=== PATIENT | female | born 1990 | race Two or more races ===

== ENCOUNTER 2024-11-08 09:17 | Emergency (ER) | payer MEDICAID, SELFPAY ==
[2024-11-08 09:18] VITALS: BMI 46.0
[2024-11-08 09:41] VITALS: BP 152/84; PULSE 82; RESP 20; TEMP 37.1; O2SAT 98; BMI 47.5
--- NOTE | 2024-11-08 09:43 | XR_ITS ---
Examination: Tibia-Fibula, right , 2 views Technique: Tibia-fibula AP lateral 2 views Date and time of exam: November 08, 2024 0948 hours INDICATIONS: Right leg pain beginning one week ago. FINDINGS: No fracture or dislocation. No cortical bone obstruction IMPRESSION: No fracture or dislocation
--- NOTE | 2024-11-08 09:43 | XR_ITS ---
Examination: Knee, right , 3 views Technique: Knee AP, lateral, oblique 3 views Date and time of exam: November 08, 2024 0948 hours INDICATIONS: Right knee swelling and pain beginning one month ago. FINDINGS: Bipartite patella Moderate tricompartment osteoarthritis Small knee effusion No fracture IMPRESSION: Moderate tricompartment osteoarthritis No fracture
--- NOTE | 2024-11-08 09:43 | XR_ITS ---
Examination: Duplex scan of the lower extremity, unilateral right Date and time of exam: November 08, 2024 1022 hours INDICATIONS: Right leg swelling and pain beginning one week ago Technique: Duplex scan of the extremity veins using B-mode/grayscale imaging and Doppler spectral analysis and color flow Attention is directed to internal echogenicity, compression and augmentation involving these veins, color flow assessment, spectral analysis Findings: Positive for nonocclusive thrombus right popliteal right peroneal veins Common femoral superficial femoral posterior tibial veins are open IMPRESSION: Positive for acute nonocclusive thrombus in the right peroneal and popliteal veins
[2024-11-08 11:55] LABS: Basophils % (Auto) 0 % (0-2.5); Eosinophils # (Auto) 0.1 Thou/mm3 (0.0-0.5); Eosinophils % (Auto) 1 % (0-10); Hematocrit 41.5 % (36.0-46.0); Hemoglobin 13.5 g/dL (12.0-16.0); Immature Granulocytes % (Auto) 0 % (0-0); Immature Granulocytes Auto 0.01 Thou/mm3 (0.00-0.00); Lymphocytes % (Auto) 25 % (10-50); Mean Corpuscular HGB Conc 32.5 g/dl (31.0-37.0); Mean Corpuscular Volume 77 fL (80-100); Monocytes # (Auto) 0.4 Thou/mm3 (0.0-0.8); Monocytes % (Auto) 6 % (0-12); Neutrophils # (Auto) 5.4 Thou/mm3 (1.8-7.7); Neutrophils % (Auto) 68 % (37-80); Nucleated Red Blood Cell % 0 /100 WBC (0); Platelet Count 186 Thou/mm3 (140-440); RDW Standard Deviation 44.8 fL (36.4-46.3)
[2024-11-08 12:03] LABS: Glucose Estimated Average 154 mg/dL (80-131)
[2024-11-08 12:09] LABS: Partial Thromboplastin Time 30.2 Seconds (22.0-36.0); Prothrombin Time 11.2 Seconds (9.0-12.2)
[2024-11-08 12:17] LABS: Alanine Aminotransferase 64 U/L (10-49); Albumin, Serum 4.4 gm/dL (3.5-5.0); Albumin/Globulin Ratio 1.5 (1.2-2.2); Alkaline Phosphatase 63 U/L (46-116); Anion Gap 9 (7-16); Aspartate Amino Transferase 39 U/L (0-34); BUN/Creatinine Ratio 13 Ratio (12-20); Bilirubin,Total 0.6 mg/dL (0.3-1.2); Blood Urea Nitrogen 12 mg/dL (9-23); Calcium 9.5 mg/dL (8.3-10.6); Calcium (Corrected) 9.5 mg/dL (8.5-10.1); Carbon Dioxide 26.5 mMol/L (20.0-31.0); Chloride 103 mMol/L (98-107); Creatinine (Component) 0.9 mg/dL (0.6-1.3); Estimated Creatinine Clearance 109.3 mL/min (>60); Glucose 178 mg/dL (74-106); Osmolality,Calculated 279 (275-295); Potassium 3.9 mMol/L (3.4-5.1); Sodium 138 mMol/L (136-145); Total Protein 7.4 gm/dL (5.7-8.2); eGFR > 60 See Note
--- NOTE | 2024-11-08 12:19 | EDNOTE_ITS ---
Lower Extremity Injury RME/HPI General Chief Complaint: Extremity Injury, Lower Stated Complaint: RIGHT LOWER PAIN, XH BLOOD CLOTS Time Seen by Provider: 11/08/24 09:43 Arrival date/time: 11/08/24 09:17 34-year-old female with prior history of DVT back in 2013 presents to the emergency department today for complaint of right knee pain and right patel pain with mild swelling there are no other associated symptoms or aggravating factors no other modifying factors, patient denies taking medication before coming to ER today Limitations: no limitations Related Data Home Medications ?Medication ?Instructions ?Recorded ?Confirmed metformin 1,000 mg tablet 1,000 mg PO BID 07/26/19 Previous Rx's ?Medication ?Instructions ?Recorded blood sugar diagnostic (Accu-Chek #100 ea 04/01/20 Alexandra Plus test strips) cefuroxime axetil 500 mg tablet 500 mg PO BID #10 tabs 04/01/20 hydrocodone 7.5 mg-acetaminophen 1 tab PO Q8H PRN pain (scale score 04/01/20 325 mg tablet ([place]) 7-10) #10 tabs insulin glargine 100 unit/mL 22 unit (0.22 mL) subcut HS #100 04/01/20 subcutaneous solution (Lantus units U-100 Insulin) insulin lispro 100 unit/mL 2 unit (0.02 mL) subcut .TI DAC 04/01/20 subcutaneous solution (Humalog #100 multiple units U-100 Insulin) insulin syringe-needle U-100 1 mL #100 ea 04/01/20 29 gauge x 1/2 (Advocate Syringes) acetaminophen 500 mg tablet 1,000 mg (2 x 500 mg) PO Q 6H PRN 11/30/23 (Tylenol Extra Strength) pain #60 tabs ondansetron 4 mg disintegrating 4 mg PO Q6H PRN nausea and 11/30/23 tablet vomiting #15 tabs cephalexin 500 mg capsule 500 mg PO BID #6 caps apixaban 5 mg tablet (Eliquis) 10 mg (2 x 5 mg) PO BID 7 days #28 11/08/24 tabs Allergies Allergy/AdvReac Type Severity Reaction Status Date / Time No Known Allergies Allergy Verified 11/08/24 09:20 Review of Systems Review of Systems Systems Reviewed: All systems reviewed, normal except as documented Constitutional Constitutional: Reports system reviewed and no additional complaints, except as documented, Denies fever(s) and Denies headache(s) Eyes Eyes: Reports system reviewed and no additional complaints, except as documented and Denies blurry vision ENT Ears, Nose, Mouth, and Throat: Reports system reviewed and no additional complaints, except as documented, Denies headache(s), Denies nasal congestion and Denies nasal discharge Cardiovascular Cardiovascular: Reports system reviewed and no additional complaints, except as documented, Denies chest pain and Denies dyspnea Respiratory Respiratory: Reports system reviewed and no additional complaints, except as documented, Denies chest congestion, Denies cough and Denies dyspnea Gastrointestinal Gastrointestinal: Reports system reviewed and no additional complaints, except as documented and Denies abdominal pain Musculoskeletal Musculoskeletal: Reports system reviewed and no additional complaints, except as documented, Denies deformity and Reports other (Pain right leg) Integumentary/Breasts Skin/Breast: Reports system reviewed and no additional complaints, except as documented and Denies rash Neurologic Neurologic: Reports system reviewed and no additional complaints, except as documented, Reports as per HPI and Denies headache(s) Past Medical History Past Medical History NEUROLOGIC: Negative Neurological Disorders CARDIAC: Negative Cardiac Disorders or Congestive Heart Failure RESPIRATORY: Negative Chronic Obstructive Pulmonary Disease (COPD) or Asthma GASTROINTESTINAL: Negative Gastrointestinal Disorders GENITOURINARY: Positive Genitourinary Disorders and Kidney Stones; Negative Renal Disease ENDOCRINE: Positive Diabetes Mellitus Type 2; Negative Endocrine Disorders or Diabetes Mellitus Type 1 HEMATOLOGIC: Negative Sickle Cell Disease Family History FAMILY HISTORY: Negative Family Cardiac Disorders Surgical History SURGICAL: Positive Section Social History SMOKING STATUS: Never smoker ED Exam General Limitations: Present no limitations General appearance: Present alert and in no apparent distress Head Head exam: Present atraumatic Eye Eye exam: Present normal appearance, PERRL and EOMI ENT ENT exam: Present normal exam, normal oropharynx and mucous membranes moist Neck Neck exam: Present normal inspection, full ROM and trachea midline Chest Chest inspection: Present normal inspection and symmetric chest wall rise Respiratory Respiratory exam: Present normal lung sounds bilaterally Cardiovascular Cardiovascular exam: Present regular rate, normal rhythm and normal heart sounds Abdominal Exam Abdominal exam: Present soft and normal bowel sounds Extremities Exam Extremities exam: Present full ROM, tenderness, normal capillary refill, pedal edema, joint swelling and calf tenderness Back Exam Back exam: Present normal inspection and full ROM Neurological Exam Neurological exam: Present alert, oriented X3 and CN II-XII intact Psychiatric Psychiatric exam: Present normal affect and normal mood Skin Skin exam: Present warm, dry, intact and normal color Course Quality Measures none Orders Category Date Time Status US venous doppler LE RT Stat Exams 11/08/24 09:43 Completed XR knee RT 3V Stat Exams 11/08/24 09:43 Completed XR tibia fibula RT 2V Stat Exams 11/08/24 09:43 Completed A1C [Glycohemoglobin w (eAG)] Stat Lab 11/08/24 11:40 Completed CBC Stat Lab 11/08/24 11:40 Completed Comprehensive Metabolic Panel Stat Lab 11/08/24 11:40 Completed Partial Thromboplastin Time Stat Lab 11/08/24 11:40 Completed Prothrombin Time with INR Stat Lab 11/08/24 11:40 Completed Vital Signs Vital signs: Vital Signs Temperature 98.8 F 11/08/24 09:41 Pulse Rate 82 11/08/24 09:41 Respiratory Rate 20 11/08/24 09:41 Blood Pressure 152/84 H 11/08/24 09:41 Pulse Oximetry (%) 98 11/08/24 09:41 Oxygen Delivery Method Room Air 11/08/24 09:41 O2 saturation 98% room air within normal limits Extremity Injury, Lower MDM Narrative MDM Narrative:: 34-year-old female with prior history of DVT back in 2013 presents to the emergency department today for complaint of right knee pain and right patel pain with mild swelling there are no other associated symptoms or aggravating factors no other modifying factors, patient denies taking medication before coming to ER today On exam patient has no chest pain or shortness of breath no tachypnea or dyspnea no tachycardia patient has no erythema On exam patient has tenderness and mild swelling to the right patel and knee region X-ray and ultrasound obtained ultrasound consistent with DVT x-ray consistent with arthritis Lab work obtained no acute emergent findings noted Patient started on a week's course of Eliquis patient is strict instructions to follow with PCP in order to continue Eliquis further evaluation for this DVT For emergent concerns patient struck to return immediately Patient data External records reviewed:: [facility] previous records Clinical information provided by:: patient Social determinants that could affect healthcare access:: none Patient has the following chronic illnesses:: See history How is presenting disease/condition affected by chronic disease/condition?: uneffected by Evaluation data The following diagnostics were reviewed and interpreted by me:: lab results and radiology exam(s) Lab and/or radiology exams considered but not ordered:: Labs radiology obtain Interpretation Summary: Reviewed by me Medications / Prescriptions Medications or Prescriptions considered but not ordered:: Given Medication administrations:: Given Consultations Consultation(s) initiated? (list below): No Diagnosis Extremity Injury, Lower Differential Diagnosis: ankle sprain and strain, acute internal derangement of knee, ankle fracture and other Most likely diagnosis given after review of the tests above:: DVT, Osteoarthritis Admission Indicated Admission indicated?: not indicated Admission Request Was there a request for admission?: No Disposition Plan Disposition Plan: Discharge Discharge Attestation Discharge Attestation: The patient and all family members were given an opportunity to ask questions and understood the discharge instructions. Discharge instructions specifically effects, indications for sooner follow up or return to the emergency department, and the expected course of current diagnosis. Patient condition: Stable Discharge Plan Plan Patient Disposition: HOME (Self Care) Disposition Comment: Stable Prescriptions/Referrals Prescriptions/Med Rec: New Eliquis 5 mg tablet 10 mg PO BID 7 Days Qty: 28 0RF No Action metformin 1,000 mg Tablet 1,000 mg PO BID cefuroxime axetil 500 mg tablet 500 mg PO BID Qty: 10 0RF Lantus U-100 Insulin 100 unit/mL Solution 22 unit subcut HS Qty: 100 0RF insulin lispro [Humalog U-100 Insulin] 100 unit/mL Solution 2 unit subcut .TIDAC Qty: 100 0RF hydrocodone-acetaminophen [[place]] 7.5-325 mg tablet 1 tab PO Q8H MDD 3 PRN (Reason: pain (scale score 7-10)) Qty: 10 0RF (DME) insulin syringe-needle U-100 [Advocate Syringes] 1 mL 29 gauge x 1/2 syringe See Rx Instructions .ROUTE .MEDSUPPLY Qty: 100 0RF Rx Instructions: As directed (DME) Accu-Chek Alexandra Plus test strp Strip See Rx Instructions .ROUTE .MEDSUPPLY Qty: 100 0RF Rx Instructions: As directed cephalexin 500 mg capsule 500 mg PO BID Qty: 6 0RF ondansetron 4 mg tablet,disintegrating 4 mg PO Q6H PRN (Reason: nausea and vomiting) Qty: 15 0RF acetaminophen [Tylenol Extra Strength] 500 mg tablet 1,000 mg PO Q6H PRN (Reason: pain) Qty: 60 0RF Referrals: Pola Heck MD [Primary Care Provider] - In 1 week Problem List Clinical Impression: Acute deep vein thrombosis (DVT) of right lower extremity Patient/Caregiver Discharge Instructions Education Materials: DVT Dc Additional Instructions: Please follow up with your primary care doctor in the next 24-48hrs for any worsening symptoms return here immediately You are given 1 week supply of medication for DVT you will have to continue this medication past that please follow-up your PCP so they can come up with a plan for treatment Print Language: Kinyarwanda Stand Alone Forms: Gabbie Award Info., Work/School Release, Patient Portal Info Letter PA/CYBER INCIDENT RESPONDER Supervising Physician PA/TRENT Supervising Physician: Dr aldana
== END 2024-11-08 12:34 | disposition home or self-care (01) ==
PROVIDERS: Nurse Practitioner Primary Care; Emergency Provider Emergency Medicine; PCP Family Medicine
DX: I82.451 Acute embolism and thrombosis of right peroneal vein (principal); I82.431 Acute embolism and thrombosis of right popliteal vein
CPT/HCPCS: 36415; 73562; 73590; 80053; 83036; 85025; 85610; 85730; 93971; 99284

== ENCOUNTER 2025-05-05 14:13 | Outpatient (CLI) | payer MEDICAID, SELFPAY ==
[2025-05-05 14:20] VITALS: BP 105/55; PULSE 67
[2025-05-05 14:24] VITALS: BP 105/55; PULSE 67; RESP 18; RESP 99; TEMP 37; BMI 42.3
== END 2025-05-05 15:00 | disposition home or self-care (01) ==
LOC: S4S1 14:18 → S4SX 14:19
PROVIDERS: Referring Provider Obstetrics & Gynecology; Visit Provider Obstetrics & Gynecology
DX: O36.8120 Decreased fetal movements, second trimester, not applicable or unspecified (principal); Z3A.27 27 weeks gestation of pregnancy
CPT/HCPCS: 59025

== ENCOUNTER 2025-06-09 17:06 | Observation (INO) | payer MEDICAID, SELFPAY ==
[2025-06-09] VITALS (13 sets, daily range): BP systolic 113–129; BP diastolic 64–71; PULSE 65–74; RESP 16–100; TEMP 36.9; O2SAT 94–96; BMI 42.5
--- NOTE | 2025-06-09 17:23 | XR_ITS ---
Examination: Complete OB ultrasound greater than 14 weeks Date and time of exam: June 06, 2025 at 1754 hours INDICATIONS: Vaginal bleeding today Findings: Viable intrauterine single fetus with single amniotic sac presentation breech Cardiac motion 148 bpm Placenta anterior grade 3 Umbilical cord insertion seen Amniotic fluid index 14.7 cm Cervix 4.1 cm Ovaries obscured by bowel gas. Composite estimated gestational age based on BPD, head circumference, abdominal circumference, femur length is 33 weeks 2 days Estimated weight 2199.6 g. Survey of intracranial anatomy, spinal anatomy, abdominal anatomy, four-chamber heart performed with no abnormalities identified. Impression: Viable intrauterine gestation in breech presentation Placenta anterior grade 3 no abruption.
[2025-06-09 17:35] LABS: Collection Type, Urine Clean Catch
[2025-06-09 17:49] LABS: Bacteria,Urine 1+; Bilirubin,Urine Negative (Negative); Blood,Urine Trace (Negative); Clarity,Urine Clear (Clear/Hazy); Glucose, Urine Negative (Negative); Ketones,Urine Negative (Negative); Leukocyte Esterase,Urine Negative (Negative); Nitrite,Urine Negative (Negative); PH,Urine 6.5 (5.0-7.0); Protein,Urine Negative (Neg - Trace); RBC,Urine < 1 /hpf (0-3); Specific Gravity,Urine 1.006 (1.001-1.035); Squamous Epithelial Cell,Urine 3 /hpf (0-5); Urobilinogen,Urine Negative mg/dL (0.0-1.0); WBC,Urine 2 /hpf (0-5)
[2025-06-09 17:50] LABS: Color,Urine Lt-Yellow (Lt Yel-Yel); Culture Indicated,Urine Yes
== END 2025-06-09 19:00 | disposition home or self-care (01) ==
PROVIDERS: Admitting Provider Obstetrics & Gynecology; Visit Provider Obstetrics & Gynecology
DX: O46.93 Antepartum hemorrhage, unspecified, third trimester (principal); O32.1XX0 Maternal care for breech presentation, not applicable or unspecified; Z3A.33 33 weeks gestation of pregnancy
CPT/HCPCS: 59025; 59899; 76805; 81001; 87077; 87086; 87186